=== PATIENT | male | born 1970 | race African-American/Black ===

== ENCOUNTER 2024-03-22 18:45 | Emergency (ER) | payer SELFPAY ==
[~2024-03-22] VITALS: Ht 165.1 cm; Wt 83.0 kg
[2024-03-22 19:07] VITALS: TEMP 98.7; O2SAT 99
[2024-03-22] MEDS ORDERED: DOXY100C5 MT (19:29)
[2024-03-22] MEDS: DOXYCYCLINE HYCLATE 100MG CAPSULE PO ONE (20:06)
[2024-03-22 20:14] VITALS: BP 130/80; PULSE 70; RESP 15
== END 2024-03-22 20:42 | disposition home or self-care (01) ==
LOC: ER 18:45
DX: L02.415 Cutaneous abscess of right lower limb (principal); L03.115 Cellulitis of right lower limb; I25.2 Old myocardial infarction; Z86.73 Personal history of transient ischemic attack (TIA), and cerebral infarction without residual deficits; Z98.890 Other specified postprocedural states; Z88.6 Allergy status to analgesic agent
CPT/HCPCS: 99283

== ENCOUNTER 2024-03-23 13:12 | Emergency (ER) | payer MEDICAID ==
[~2024-03-23] VITALS: Ht 165.1 cm; Wt 83.9 kg
[~2024-03-23 13:12] MED LIST: DOXY100C5 MT
[2024-03-23 13:25] VITALS: BP 115/65; PULSE 76; RESP 14; TEMP 97.7; O2SAT 96
== END 2024-03-23 14:28 | disposition home or self-care (01) ==
LOC: ER 13:50
DX: L03.115 Cellulitis of right lower limb (principal); Z00.00 Encounter for general adult medical examination without abnormal findings
CPT/HCPCS: 99281

== ENCOUNTER 2024-06-14 13:56 | Emergency (ER) | payer MEDICAID ==
[~2024-06-14] VITALS: Ht 175.3 cm; Wt 83.0 kg
[2024-06-14 14:05] VITALS: O2SAT 98
[2024-06-14] MEDS: ACETAMINOPHEN 325MG TABLET PO ONE (16:23)
[2024-06-14] MEDS: LIDOCAINE 5% PATCH TOP SCH (16:24)
[2024-06-14] MEDS: IBUPROFEN 400MG TABLET PO ONE (16:30)
[2024-06-14 17:38] VITALS: BP 115/70; PULSE 68; RESP 16; TEMP 37.00296; O2SAT 98
== END 2024-06-14 18:01 | disposition home or self-care (01) ==
LOC: ER 13:56
DX: M79.645 Pain in left finger(s) (principal); M25.512 Pain in left shoulder; Z88.6 Allergy status to analgesic agent; I25.2 Old myocardial infarction; W19.XXXA Unspecified fall, initial encounter; Y93.89 Activity, other specified; Y92.89 Other specified places as the place of occurrence of the external cause; Y99.8 Other external cause status
CPT/HCPCS: 29130; 73030; 73130; 99284

== ENCOUNTER 2024-07-08 21:08 | Emergency (ER) | payer MEDICAID ==
[~2024-07-08] VITALS: Ht 172.7 cm; Wt 81.9 kg
[2024-07-08 21:14] VITALS: O2SAT 98
[2024-07-08] MEDS: HYDROCODONE/ACETAMINOPHEN 5/325MG TABLET PO ONE (22:15)
[2024-07-08 22:35] LABS: CLARITY URINE CLEAR (CLEAR); COLOR URINE YELLOW (YELLOW); GLUCOSE URINE NEGATIVE (NEGATIVE); KETONES URINE NEGATIVE (NEGATIVE); LEUKOCYTE ESTERASE URINE NEGATIVE (NEGATIVE); NITRITE URINE NEGATIVE (NEGATIVE); OCCULT BLOOD URINE NEGATIVE (NEGATIVE); PH URINE 5.5 (4.5-8.0); PROTEIN URINE NEGATIVE (NEGATIVE); SPECIFIC GRAVITY URINE 1.029 (1.005-1.030)
[2024-07-09] MEDS: DOXYCYCLINE HYCLATE 100MG CAPSULE PO NR
[2024-07-09] MEDS ORDERED: DOXY100C5 MT (00:41)
[2024-07-09] MEDS: HYDROCODONE/ACETAMINOPHEN 5/325MG TABLET PO NR (00:45)
[2024-07-09] MEDS: CEFTRIAXONE SODIUM 500MG VIAL IM NR (00:45)
[2024-07-09 01:10] VITALS: BP 125/86; PULSE 75; RESP 16; TEMP 36.66960; O2SAT 100
== END 2024-07-09 03:24 | disposition home or self-care (01) ==
LOC: ER 21:08
DX: N45.1 Epididymitis (principal); I25.2 Old myocardial infarction; Z88.6 Allergy status to analgesic agent
CPT/HCPCS: 81003; 93976; 76870; 99285; 96372; J0696; Z7610